=== PATIENT | female | born 1940 | race Caucasian/White ===

== ENCOUNTER → 2016-08-18 | Outpatient (CLI) | payer OTHER, MEDICARE ==
[~2016-08-18] MED LIST: ASPEC325 PO; CARV6.252 PO; CLB200 PO; GLC/500 PO; HYDR-5688 PO; INSUINJ7 SC; INSUINJ8 SC; LEVO125T72 PO; LISI20TA3 PO; OXYSR10 PO; ZNTT/150 PO
[2016-08-18 16:36] LABS: BASO % 0.6 %; BASO ABS # 0.02 K/uL (0-0.2); COMPLETE YES; HEMATOCRIT 39.3 % (37-47); IG% 0.3 %; LYMPH % 30.7 %; LYMPH ABS # 1.06 K/uL (1.2-3.4); MEAN CELL VOLUME 93.1 fL (80-100); MEAN CORPUSCULAR HEMOGLOBIN 29.4 pg (25-34); MEAN CORPUSCULAR HGB CONC 31.6 g/dl (32-36); MEAN PLATELET VOLUME 10.5 fL (7.4-10.4); NEUT % 59.4 %; PLATELET COUNT 105 K/uL (130-400); RED BLOOD COUNT 4.22 M/uL (4.2-5.4); WHITE BLOOD COUNT 3.45 K/uL (4.8-10.8)
[2016-08-18 17:01] LABS: ALT/SGPT 38 U/L (12-78); AST/SGOT 40 U/L (15-37); BLOOD UREA NITROGEN 20 mg/dl (7-18); BUN/CREATININE RATIO 21.9 (10-20); CALCIUM 8.8 mg/dl (8.5-10.1); CARBON DIOXIDE 28 mmol/L (21-32); CHLORIDE 105 mmol/L (98-107); GLUCOSE 98 mg/dl (70-99); POTASSIUM 4.1 mmol/L (3.5-5.1); SODIUM 139 mmol/L (136-145)
[2016-08-18 17:11] LABS: ALB/GLOB RATIO 0.7 (0.9-2); ALKALINE PHOSPHATASE 81 U/L (45-117)
[2016-08-18 17:36] LABS: URINE APPEARANCE CLEAR (CLEAR); URINE BILIRUBIN NEG (NEG); URINE COLOR YELLOW; URINE NITRITE NEG (NEG); URINE PH 6.5 (4.5-7.5); URINE SPECIFIC GRAVITY 1.012 (1.000-1.030); UROBILINOGEN NEG (NEG)
[2016-08-18 17:40] LABS: MANUAL MICROSCOPIC REQUIRED? NO; REVIEW REQ? NO
[2016-08-18 17:48] LABS: URINE PROTIEN/CREAT RATIO 3.2 (0-0.2); URINE TOTAL PROTEIN 112.9 mg/dl (0-11.9)
[2016-08-20 11:08] LABS: FREE KAPPA 39.4 MG/L (3.3-19.4); FREE KAPPA/LAMBDA RATIO 1.22 (0.26-1.65); FREE LAMBDA 32.2 MG/L (5.7-26.3)
== END | disposition home or self-care (01) ==
LOC: C.LAB1850 15:44
PROVIDERS: ATTEND Internal Medicine Nephrology
DX: I12.9 Hypertensive chronic kidney disease with stage 1 through stage 4 chronic kidney disease, or unspecified chronic kidney disease (principal); R60.9 Edema, unspecified; R80.9 Proteinuria, unspecified; E55.9 Vitamin D deficiency, unspecified; N18.2 Chronic kidney disease, stage 2 (mild); E03.9 Hypothyroidism, unspecified

== ENCOUNTER → 2016-11-22 | Outpatient (CLI) | payer OTHER, MEDICARE ==
[2016-11-22 11:19] LABS: HEMATOCRIT 37.1 % (37-47); MEAN CELL VOLUME 95.1 fL (80-100); MEAN CORPUSCULAR HEMOGLOBIN 31.3 pg (25-34); MEAN CORPUSCULAR HGB CONC 32.9 g/dl (32-36); MEAN PLATELET VOLUME 10.4 fL (7.4-10.4); PLATELET COUNT 88 K/uL (130-400); WHITE BLOOD COUNT 3.14 K/uL (4.8-10.8)
[2016-11-22 11:21] LABS: PLT ESTIMATE DECREASED
[2016-11-22 11:27] LABS: ALT/SGPT 38 U/L (12-78); AST/SGOT 44 U/L (15-37); BLOOD UREA NITROGEN 21 mg/dl (7-18); BUN/CREATININE RATIO 26.7 (10-20); CALCIUM 8.9 mg/dl (8.5-10.1); CARBON DIOXIDE 27 mmol/L (21-32); CHLORIDE 104 mmol/L (98-107); CHOLESTEROL 228 mg/dl (0-200); GLUCOSE 132 mg/dl (70-99); POTASSIUM 4.3 mmol/L (3.5-5.1); SODIUM 140 mmol/L (136-145)
[2016-11-22 11:31] LABS: CHOLESTEROL/HDL RATIO 4.6; HDL CHOLESTEROL 50 mg/dl; PHOSPHORUS 3.5 mg/dl (2.5-4.9); TRIGLYCERIDES 129 mg/dl (0-150); VERY LOW DENSITY LIPOPROT CALC 26 mg/dl
== END | disposition home or self-care (01) ==
LOC: C.LAB1850 09:18
PROVIDERS: ATTEND Internal Medicine Nephrology
DX: I12.9 Hypertensive chronic kidney disease with stage 1 through stage 4 chronic kidney disease, or unspecified chronic kidney disease (principal); R60.9 Edema, unspecified; E55.9 Vitamin D deficiency, unspecified; N18.2 Chronic kidney disease, stage 2 (mild); E11.65 Type 2 diabetes mellitus with hyperglycemia; E11.22 Type 2 diabetes mellitus with diabetic chronic kidney disease; E78.5 Hyperlipidemia, unspecified; E03.9 Hypothyroidism, unspecified